=== PATIENT | male | born 1975 | race Two or more races ===

== ENCOUNTER → 2025-01-12 | Emergency (ER) | payer OTHER ==
[~2025-01-12] VITALS: Ht 185.4 cm; Wt 108.9 kg
[~2025-01-12] MED LIST: CIPROFLOXACIN HCL 0.175 MG/DR DROPS OP ONE; OCUFLOX5 ML OP; OFLOXACIN 0.3% OP ONE
== END | disposition home or self-care (01) ==
LOC: ER 10:48
DX: T15.91XA Foreign body on external eye, part unspecified, right eye, initial encounter (principal); X58.XXXA Exposure to other specified factors, initial encounter; Y93.89 Activity, other specified; Y92.89 Other specified places as the place of occurrence of the external cause; Y99.9 Unspecified external cause status